=== PATIENT | female | born 1960 | race African-American/Black ===

== ENCOUNTER 2016-10-14 17:41 | Emergency (ER) | payer OTHER ==
[~2016-10-14] VITALS: Ht 175.3 cm; Wt 88.0 kg
[~2016-10-14 17:41] MED LIST: 1-ME1LIQ OR; LEVO25TA36 PO; METO100T PO; MOBI7.5T PO; Muscle Relaxer; OMEP20TA OR; SIMV20TA OR
[2016-10-14 17:43] VITALS: BP 127/68; PULSE 69; RESP 15; TEMP 98.1; O2SAT 99
--- NOTE | 2016-10-14 17:57 | PD ---
Physical Exam Date Seen by Provider: Oct 14, 2016 Time Seen by Provider: 17:51 Narrative 55 Y/O female presents with complaints of right upper abdominal pain for the past 2 months, which is reportedly worse with food and if she sits too long. Patient recently diagnosed with shingles 6 days ago in same area, but pain was present before. No vomiting or diarrhea. Denies fever. No History Abdominal Surgery. Patient on Valtrex for shingles. V/S stable. Awaiting Bed Placement. Data Data Last Documented VS Vital Signs Date Time Temp Pulse Resp B/P Pulse Ox O2 Delivery O2 Flow Rate FiO2 10/14/16 17:43 98.1 69 15 127/68 99 MDM Medical Record Reviewed: Yes Supervised Visit with SUDHA: Yes Condition: Stable Carlos Cao Oct 14, 2016 17:57
[2016-10-14] MEDS ORDERED: SODIUM CHLORIDE 0.9% FLUSH 10 ML FLUSH IV FLUSH PRN (18:15)
[2016-10-14 18:24] VITALS: RESP 18; O2SAT 95
[2016-10-14] MEDS ORDERED: PERC5TAB12 PO (18:43)
[2016-10-14] MEDS ORDERED: SIMV20TA PO (18:43)
[2016-10-14] MEDS ORDERED: MOBI7.5T PO (18:43)
[2016-10-14] MEDS ORDERED: OMEP20TA PO (18:43)
[2016-10-14] MEDS ORDERED: AMLO10TA2 PO (18:43)
[2016-10-14] MEDS ORDERED: LEVO50TA4 PO (18:43)
[2016-10-14] MEDS ORDERED: ASPI1TAB91 PO (18:43)
[2016-10-14] MEDS ORDERED: LIDO5%T TOPICAL (18:43)
[2016-10-14] MEDS ORDERED: METO100T PO (18:43)
[2016-10-14] MEDS ORDERED: VALA1TAB PO (18:43)
[2016-10-14 19:10] LABS: AUTOMATED NEUTROPHIL # 3.2 TH/MM3 (1.8-7.7); BASOPHIL # 0.1 TH/MM3 (0-0.2); BASOPHIL % 0.8 % (0.0-2.0); EOSINOPHIL # 0.1 TH/MM3 (0-0.4); EOSINOPHIL % 1.3 % (0.0-4.0); HEMATOCRIT 37.9 % (35.0-46.0); HEMO FLAGS DIFF FINAL; LYMPH % 37.3 % (9.0-44.0); LYMPHOCYTE # 2.4 TH/MM3 (1.0-4.8); MEAN CORPUSCULAR HEMOGLOBIN 31.4 PG (27.0-34.0); MEAN CORPUSCULAR HGB CONC 34.5 % (32.0-36.0); MONO % 10.3 % (0.0-8.0); NEUT % 50.3 % (16.0-70.0); PLATELET COUNT 230 TH/MM3 (150-450); RED BLOOD COUNT 4.17 MIL/MM3 (4.00-5.30); RED CELL DISTRIBUTION WIDTH 13.4 % (11.6-17.2); WHITE BLOOD COUNT 6.4 TH/MM3 (4.0-11.0)
[2016-10-14 19:33] LABS: ANION GAP 8 MEQ/L (5-15); AST (GOT) 23 U/L (15-37); BLOOD UREA NITROGEN 14 MG/DL (7-18); CHLORIDE 104 MEQ/L (98-107); GLOMERULAR FILTRATION RATE 61 ML/MIN (>89); POTASSIUM 3.6 MEQ/L (3.5-5.1); SODIUM (NA) 140 MEQ/L (136-145)
--- NOTE | 2016-10-14 19:34 | RADRPT ---
EXAM DATE/TIME: 10/14/2016 18:45 [facility] COMPARISON: No previous studies available for comparison. INDICATIONS : Right upper quadrant pain. MEDICAL HISTORY : Hypercholesterolemia. Hypertension. Thyroid disease. GERD. Ovarian cysts. Ectopic . SURGICAL HISTORY : Tubal PG. Left wrist CTR. Left ovary and fallopian tube. ENCOUNTER: Initial ACUITY: 2 months PAIN SCORE: 7/10 LOCATION: Right upper quadrant MEASUREMENTS: LIVER: 17.9 cm length COMMON DUCT: 2 mm RIGHT KIDNEY: 9.5 x 5.2 x 4.7 cm FINDINGS: The gallbladder is intact without any evidence for gallstones, gallbladder wall thickening, or perich olecystic fluid. The visualized liver, head of the pancreas, and right kidney appear grossly intact for technique. CONCLUSION: Unremarkable study. Lenore Gauthier MD on October 14, 2016 at 19:32 Board Certified Radiologist. This report was verified electronically.
[2016-10-14 19:39] LABS: ALKALINE PHOSPHATASE 78 U/L (45-117); ALT (GPT) 23 U/L (10-53); TOTAL BILIRUBIN ADULT 0.2 MG/DL (0.2-1.0)
[2016-10-14 19:50] VITALS: BP 150/79; PULSE 75; RESP 15; O2SAT 100
--- NOTE | 2016-10-14 20:09 | PD ---
HPI Chief Complaint: Abdominal Pain Time Seen by Provider: 17:59 Travel History International Travel<30 days: No Contact w/Intl Traveler<30days: No Traveled to known affect area: No PFSH Past Medical History High Cholesterol: Yes Diabetes: No Diminished Hearing: No GERD: Yes Headaches: Yes Hypertension: Yes Kidney Stones: No Shingles: Yes Thyroid Disease: Yes ?: Not Menopausal: Yes : 1 Para: 1 Miscarriage: 1 Ectopic : Yes Ovarian Cysts: Yes Past Surgical History Gynecologic Surgery: Yes (TUBAL PG) Other Surgery: Yes (LEFT OVARY AND LEFT F. TUBE) Social History Alcohol Use: No Tobacco Use: Yes (1 ppd) Substance Use: No Allergies-Medications (Allergen,Severity, Reaction): Coded Allergies: Lisinopril (Verified Allergy, Severe, Cough, 10/14/16) Reported Meds & Prescriptions Reported Meds & Active Scripts Active Reported Omeprazole 20 Mg Tab 20 Mg PO DAILY Metoprolol Tartrate 100 Mg Tab 100 Mg PO BID Mobic (Meloxicam) 7.5 Mg Tab 7.5 Mg PO BID Levothyroxine (Levothyroxine Sodium) 50 Mcg Tab 50 Mcg PO DAILY Simvastatin 20 Mg Tab 20 Mg PO HS Amlodipine (Amlodipine Besylate) 10 Mg Tab 10 Mg PO DAILY Valacyclovir (Valacyclovir HCl) 1 Gm Tab 1 Gm PO TID Percocet (Oxycodone-Acetaminophen) 5-325 mg Tab 1 Tab PO EVERY 6-8HRS PRN Lidocaine Topical (Lidocaine HCl) 5 % Oint 1 Applic TOPICAL TID PRN Apply to stomach lesions Aspirin Adult Low Strength (Aspirin) 81 Mg Tabdr 81 Mg PO DAILY Data Data Last Documented VS Vital Signs Date Time Temp Pulse Resp B/P Pulse Ox O2 Delivery O2 Flow Rate FiO2 10/14/16 19:51 15 10/14/16 19:50 75 150/79 100 10/14/16 18:24 Room Air 10/14/16 17:43 98.1 Orders Complete Blood Count With Diff (10/14/16 18:07) Comprehensive Metabolic Panel (10/14/16 18:07) Lipase (10/14/16 18:07) Iv Access Insert/Monitor (10/14/16 18:07) Ecg Monitoring (10/14/16 18:07) Oximetry (10/14/16 18:07) Sodium Chloride 0.9% Flush (Ns Flush) (10/14/16 18:15) Us Abdomen Gallbladder (10/14/16 18:07) Tramadol (Ultram) (10/14/16 20:15) Labs Laboratory Tests Test 10/14/16 18:20 White Blood Count 6.4 TH/MM3 Red Blood Count 4.17 MIL/MM3 Hemoglobin 13.1 GM/DL Hematocrit 37.9 % Mean Corpuscular Volume 91.0 FL Mean Corpuscular Hemoglobin 31.4 PG Mean Corpuscular Hemoglobin 34.5 % Concent Red Cell Distribution Width 13.4 % Platelet Count 230 TH/MM3 Mean Platelet Volume 8.6 FL Neutrophils (%) (Auto) 50.3 % Lymphocytes (%) (Auto) 37.3 % Monocytes (%) (Auto) 10.3 % Eosinophils (%) (Auto) 1.3 % Basophils (%) (Auto) 0.8 % Neutrophils # (Auto) 3.2 TH/MM3 Lymphocytes # (Auto) 2.4 TH/MM3 Monocytes # (Auto) 0.7 TH/MM3 Eosinophils # (Auto) 0.1 TH/MM3 Basophils # (Auto) 0.1 TH/MM3 CBC Comment DIFF FINAL Differential Comment Sodium Level 140 MEQ/L Potassium Level 3.6 MEQ/L Chloride Level 104 MEQ/L Carbon Dioxide Level 28.0 MEQ/L Anion Gap 8 MEQ/L Blood Urea Nitrogen 14 MG/DL Creatinine 1.12 MG/DL Estimat Glomerular Filtration 61 ML/MIN Rate Random Glucose 84 MG/DL Calcium Level 8.7 MG/DL Total Bilirubin 0.2 MG/DL Aspartate Amino Transf 23 U/L (AST/SGOT) Alanine Aminotransferase 23 U/L (ALT/SGPT) Alkaline Phosphatase 78 U/L Total Protein 7.8 GM/DL Albumin 3.6 GM/DL Lipase 169 U/L [facility] Medical Decision Making Medical Screen Exam Complete: Yes Emergency Medical Condition: Yes Diagnosis Primary Impression: RUQ abdominal pain Condition: Stable Dwayne Neal MD Oct 14, 2016 20:09
[2016-10-14] MEDS ORDERED: traMADol HCL 50 MG TAB PO ONE (20:15)
--- NOTE | 2016-10-15 13:31 | PD ---
HPI Chief Complaint: Abdominal Pain Time Seen by Provider: 17:59 Travel History International Travel<30 days: No Contact w/Intl Traveler<30days: No Traveled to known affect area: No History of Present Illness HPI Patient is a 55 year old female presents to the emergency department for evaluation of ruq abdominal pain. Patient recently diagnosed with shingles of the right sided of the abdomen. Patient states she has been taking antivirals for this. States that the RUQ pain preceeded the rash by a month and feels deeper inside. No NVDC. Patient states gets worse with food. States pain is fairly mild now. Was offered pain medication on arrival but declined. PFSH Past Medical History High Cholesterol: Yes Diabetes: No Diminished Hearing: No GERD: Yes Headaches: Yes Hypertension: Yes Kidney Stones: No Shingles: Yes Thyroid Disease: Yes ?: Not Menopausal: Yes : 1 Para: 1 Miscarriage: 1 Ectopic : Yes Ovarian Cysts: Yes Past Surgical History Gynecologic Surgery: Yes (TUBAL PG) Other Surgery: Yes (LEFT OVARY AND LEFT F. TUBE) Social History Alcohol Use: No Tobacco Use: Yes (1 ppd) Substance Use: No Allergies-Medications (Allergen,Severity, Reaction): Coded Allergies: Lisinopril (Verified Allergy, Severe, Cough, 10/14/16) Reported Meds & Prescriptions Reported Meds & Active Scripts Active Reported Omeprazole 20 Mg Tab 20 Mg PO DAILY Metoprolol Tartrate 100 Mg Tab 100 Mg PO BID Mobic (Meloxicam) 7.5 Mg Tab 7.5 Mg PO BID Levothyroxine (Levothyroxine Sodium) 50 Mcg Tab 50 Mcg PO DAILY Simvastatin 20 Mg Tab 20 Mg PO HS Amlodipine (Amlodipine Besylate) 10 Mg Tab 10 Mg PO DAILY Valacyclovir (Valacyclovir HCl) 1 Gm Tab 1 Gm PO TID Percocet (Oxycodone-Acetaminophen) 5-325 mg Tab 1 Tab PO EVERY 6-8HRS PRN Lidocaine Topical (Lidocaine HCl) 5 % Oint 1 Applic TOPICAL TID PRN Apply to stomach lesions Aspirin Adult Low Strength (Aspirin) 81 Mg Tabdr 81 Mg PO DAILY Review of Systems Except as stated in HPI: all other systems reviewed are Neg Physical Exam Narrative GENERAL: WD/WN in nad. Appears well and in no pain. Quite pleasant. SKIN: Warm and dry. HEAD: Atraumatic. Normocephalic. EYES: Pupils equal and round. No scleral icterus. No injection or drainage. ENT: No nasal bleeding or discharge. Mucous membranes pink and moist. NECK: Trachea midline. No JVD. CARDIOVASCULAR: Regular rate and rhythm. RESPIRATORY: No accessory muscle use. Clear to auscultation. Breath sounds equal bilaterally. GASTROINTESTINAL: Abdomen soft, non-tender, nondistended. Hepatic and splenic margins not palpable. There is a scabbed rash to the right upper quadrant wrapping around the abdomen to the back and not crossing midline. Rash is scabbed. No erythema. C/W resolving shingles. MUSCULOSKELETAL: Extremities without clubbing, cyanosis, or edema. No obvious deformities. NEUROLOGICAL: Awake and alert. No obvious cranial nerve deficits. Motor grossly within normal limits. Five out of 5 muscle strength in the arms and legs. Normal speech. PSYCHIATRIC: Appropriate mood and affect; insight and judgment normal. Data Data Last Documented VS Vital Signs Date Time Temp Pulse Resp B/P Pulse Ox O2 Delivery O2 Flow Rate FiO2 10/14/16 19:51 15 10/14/16 19:50 75 150/79 100 10/14/16 18:24 Room Air 10/14/16 17:43 98.1 Orders Complete Blood Count With Diff (10/14/16 18:07) Comprehensive Metabolic Panel (10/14/16 18:07) Lipase (10/14/16 18:07) Iv Access Insert/Monitor (10/14/16 18:07) Ecg Monitoring (10/14/16 18:07) Oximetry (10/14/16 18:07) Sodium Chloride 0.9% Flush (Ns Flush) (10/14/16 18:15) Us Abdomen Gallbladder (10/14/16 18:07) Tramadol (Ultram) (10/14/16 20:15) Labs Laboratory Tests Test 10/14/16 18:20 White Blood Count 6.4 TH/MM3 Red Blood Count 4.17 MIL/MM3 Hemoglobin 13.1 GM/DL Hematocrit 37.9 % Mean Corpuscular Volume 91.0 FL Mean Corpuscular Hemoglobin 31.4 PG Mean Corpuscular Hemoglobin 34.5 % Concent Red Cell Distribution Width 13.4 % Platelet Count 230 TH/MM3 Mean Platelet Volume 8.6 FL Neutrophils (%) (Auto) 50.3 % Lymphocytes (%) (Auto) 37.3 % Monocytes (%) (Auto) 10.3 % Eosinophils (%) (Auto) 1.3 % Basophils (%) (Auto) 0.8 % Neutrophils # (Auto) 3.2 TH/MM3 Lymphocytes # (Auto) 2.4 TH/MM3 Monocytes # (Auto) 0.7 TH/MM3 Eosinophils # (Auto) 0.1 TH/MM3 Basophils # (Auto) 0.1 TH/MM3 CBC Comment DIFF FINAL Differential Comment Sodium Level 140 MEQ/L Potassium Level 3.6 MEQ/L Chloride Level 104 MEQ/L Carbon Dioxide Level 28.0 MEQ/L Anion Gap 8 MEQ/L Blood Urea Nitrogen 14 MG/DL Creatinine 1.12 MG/DL Estimat Glomerular Filtration 61 ML/MIN Rate Random Glucose 84 MG/DL Calcium Level 8.7 MG/DL Total Bilirubin 0.2 MG/DL Aspartate Amino Transf 23 U/L (AST/SGOT) Alanine Aminotransferase 23 U/L (ALT/SGPT) Alkaline Phosphatase 78 U/L Total Protein 7.8 GM/DL Albumin 3.6 GM/DL Lipase 169 U/L [facility] Medical Decision Making Medical Screen Exam Complete: Yes Emergency Medical Condition: Yes Differential Diagnosis RUQ pain, pancreatitis, biliary colic, cholecystitis, shingles prodrome/ outbreak. Narrative Course Patient roomed in ER. Offered pain medication and initially declined. Abdomen is benign. Healing shingles rash noted. Likely non-contagious at this point. GB US obtained: Last 24 hours Impressions Gall Bladder Ultrasound 10/14/16 [id number] Signed Impressions: Service Date/Time: Friday, October 14, 2016 18:45 - CONCLUSION: Unremarkable study. KMylene Gauthier MD Abdominal labs are reassuring. She ultimately was offered and accepted ultram. her is going to take her home. She is stable for discharge. Discussed need for follow up with her pcp for further workup. She will do this later this week. Discussed return to ED criteria. Diagnosis Primary Impression: RUQ abdominal pain Patient Instructions: General Instructions, Abdominal Pain (ED) Departure Forms: Tests/Procedures Disposition: 01 DISCHARGE HOME Condition: Stable Dwayne Neal MD October 15, 2016 13:31
== END 2016-10-14 21:07 | disposition home or self-care (01) ==
LOC: NEPD 17:41
DX: R10.11 Right upper quadrant pain (principal); R21 Rash and other nonspecific skin eruption; I10 Essential (primary) hypertension; F17.210 Nicotine dependence, cigarettes, uncomplicated
CPT/HCPCS: 76705; 80053; 83690; 85025

== ENCOUNTER 2017-08-17 12:49 | Emergency (ER) | payer OTHER ==
[~2017-08-17] VITALS: Ht 175.3 cm; Wt 90.0 kg
[~2017-08-17 12:49] MED LIST changes: -1-ME1LIQ OR; +AMLO10TA2 PO; +ASPI81TA16 PO; -LEVO25TA36 PO; +LEVO50TA4 PO; +LIDO5%T TOPICAL; -Muscle Relaxer; -OMEP20TA OR; +OMEP20TA93 PO; +PERC5TAB12 PO; -SIMV20TA OR; +SIMV20TA PO; +VALA1TAB PO
[2017-08-17] MEDS ORDERED: IOHEXOL 350 MG/ML 10 ML VIAL (for RAD DIAG) IVCONTRAST ONE (12:50)
[2017-08-17 13:13] VITALS: BP 132/69; PULSE 67; RESP 16; TEMP 98.5; O2SAT 98
--- NOTE | 2017-08-17 14:19 | PD ---
HPI Chief Complaint: Bleeding Time Seen by Provider: 13:50 Travel History International Travel<30 days: No Contact w/Intl Traveler<30days: No Traveled to known affect area: No History of Present Illness HPI 56-year-old female presents emergency department with concerns of right upper quadrant pain, rectal bleeding, and vaginal discharge for 1-2 weeks. Patient states that she has had rectal bleeding about 2 weeks and is due to have a colonoscopy in 1-2 weeks however, they were engaged in anal intercourse and says now she has increased rectal pain and is concerned about a tear. Patient denies fever, chills, weakness, she chest pain, shortness of breath. In addition, patient states that she has had a foul odor and is itching in her vaginal area. Says she developed right upper quadrant pain 3 days after the intercourse that is worse with bowel movements and is mild to moderate nature. No radiation of pain. Says that she has had decreased quantity of stool in her bowel movements secondary to this rectal pain. Patient states he takes aspirin but no other blood thinners. Patient denies cardiac history. States she has a history of hypertension, hyperlipidemia, hypothyroid. She mentions that she went to her primary care physician where she had multiple lab tests and they were "negative for venereal diseases" except for herpes simplex. Pt says she is monogamous with her but is certain that her is not. She does not know how many partners her has had. PFSH Past Medical History Hx Anticoagulant Therapy: Yes (81MG ASA) High Cholesterol: Yes Diabetes: No Diminished Hearing: No GERD: Yes Headaches: Yes Hypertension: Yes Kidney Stones: No Shingles: Yes Thyroid Disease: Yes ?: Not Menopausal: Yes : 1 Para: 1 Miscarriage: 1 Ectopic : Yes Ovarian Cysts: Yes Past Surgical History Gynecologic Surgery: Yes (TUBAL PG) Other Surgery: Yes (LEFT OVARY AND LEFT F. TUBE) Social History Alcohol Use: No Tobacco Use: Yes Substance Use: No Allergies-Medications (Allergen,Severity, Reaction): Coded Allergies: lisinopril (Unverified Allergy, Severe, Cough, 08/17/17) Reported Meds & Prescriptions Reported Meds & Active Scripts Active Reported Omeprazole 20 Mg Tab 20 Mg PO DAILY Metoprolol Tartrate 100 Mg Tab 100 Mg PO BID Mobic (Meloxicam) 7.5 Mg Tab 7.5 Mg PO BID Levothyroxine (Levothyroxine Sodium) 50 Mcg Tab 50 Mcg PO DAILY Simvastatin 20 Mg Tab 20 Mg PO HS Amlodipine (Amlodipine Besylate) 10 Mg Tab 10 Mg PO DAILY Lidocaine Topical (Lidocaine HCl) 5 % Oint 1 Applic TOPICAL TID PRN Apply to stomach lesions Aspirin Adult Low Strength (Aspirin) 81 Mg Tabdr 81 Mg PO DAILY Review of Systems Except as stated in HPI: all other systems reviewed are Neg Physical Exam Narrative GENERAL: Well-developed, well-nourished in no apparent distress, resting comfortably but SKIN: Focused skin assessment warm/dry. HEAD: Atraumatic. Normocephalic. EYES: Pupils equal and round. No scleral icterus. No injection or drainage. ENT: No nasal bleeding or discharge. Mucous membranes pink and moist. NECK: Trachea midline. No JVD. No lymphadenopathy CARDIOVASCULAR: Regular rate and rhythm. No murmur appreciated. RESPIRATORY: No accessory muscle use. Clear to auscultation. Breath sounds equal bilaterally. GASTROINTESTINAL: Abdomen soft, right upper quadrant pain without rebound, negative Grant, : Cervical os was closed without drainage. No cervical motion tenderness. Uterus nontender and nonenlarged. right adnexa mildly TTP without mass, left adnexa nontender, no mass Rectum: possible anal fissure 12-1 oclock, scant stool in vault MUSCULOSKELETAL: No obvious deformities. No clubbing. No cyanosis. No edema. NEUROLOGICAL: Awake and alert. No obvious cranial nerve deficits. Motor grossly within normal limits. Normal speech. PSYCHIATRIC: Appropriate mood and affect; insight and judgment normal. Data Data Last Documented VS Vital Signs Date Time Temp Pulse Resp B/P (MAP) Pulse Ox O2 Delivery O2 Flow Rate FiO2 08/17/17 13:13 98.5 67 16 132/69 (90) 98 Orders Orders Complete Blood Count With Diff (08/17/17 14:05) Comprehensive Metabolic Panel (08/17/17 14:05) Gc And Chlamydia Pcr (08/17/17 14:05) Wet Prep Profile (08/17/17 14:05) Urinalysis - C+S If Indicated (08/17/17 14:05) Ed Urine Pregnancytest Poc (08/17/17 14:05) Lipase (08/17/17 14:05) Ct Abd/Pel W Iv Contrast(Rout) (08/17/17 ) Iohexol 350 Inj (Omnipaque 350 Inj) (08/17/17 12:50) Azithromycin Powd Pack (Zithromax Powd P (08/17/17 17:00) Lidocaine 1% Inj (50 Ml) (Xylocaine 1% I (08/17/17 17:00) Ceftriaxone Inj (Rocephin Inj) (08/17/17 17:00) Ed Discharge Order (08/17/17 17:03) Labs Laboratory Tests Test 08/17/17 14:41 White Blood Count 5.0 TH/MM3 Red Blood Count 4.12 MIL/MM3 Hemoglobin 13.2 GM/DL Hematocrit 37.9 % Mean Corpuscular Volume 92.0 FL Mean Corpuscular Hemoglobin 32.0 PG Mean Corpuscular Hemoglobin Concent 34.8 % Red Cell Distribution Width 14.1 % Platelet Count 239 TH/MM3 Mean Platelet Volume 7.7 FL Neutrophils (%) (Auto) 53.0 % Lymphocytes (%) (Auto) 35.8 % Monocytes (%) (Auto) 9.8 % Eosinophils (%) (Auto) 0.7 % Basophils (%) (Auto) 0.7 % Neutrophils # (Auto) 2.7 TH/MM3 Lymphocytes # (Auto) 1.8 TH/MM3 Monocytes # (Auto) 0.5 TH/MM3 Eosinophils # (Auto) 0.0 TH/MM3 Basophils # (Auto) 0.0 TH/MM3 CBC Comment DIFF FINAL Differential Comment Urine Color LIGHT-YELLOW Urine Turbidity CLEAR Urine pH 6.5 Urine Specific [place] 1.003 Urine Protein NEG mg/dL Urine Glucose (UA) NEG mg/dL Urine Ketones NEG mg/dL Urine Occult Blood TRACE Urine Nitrite NEG Urine Bilirubin NEG Urine Urobilinogen LESS THAN 2.0 MG/DL Urine Leukocyte Esterase NEG Microscopic Urinalysis Comment CULT NOT INDICATED Clue Cells (Wet Prep) NONE SEEN Vaginal Trichomonas (Wet Prep) NONE SEEN Vaginal Yeast (Wet Prep) NONE SEEN Blood Urea Nitrogen 9 MG/DL Creatinine 0.79 MG/DL Random Glucose 88 MG/DL Total Protein 7.3 GM/DL Albumin 3.6 GM/DL Calcium Level 8.7 MG/DL Alkaline Phosphatase 59 U/L Aspartate Amino Transf (AST/SGOT) 16 U/L Alanine Aminotransferase (ALT/SGPT) 18 U/L Total Bilirubin 0.4 MG/DL Sodium Level 141 MEQ/L Potassium Level 3.4 MEQ/L Chloride Level 108 MEQ/L Carbon Dioxide Level 29.6 MEQ/L Anion Gap 3 MEQ/L Estimat Glomerular Filtration Rate 91 ML/MIN Lipase 133 U/L Chlamydia trachomatis DNA (PCR) NOT DETECTED Neisseria gonorrhoeae DNA (PCR) NOT DETECTED MDM Medical Decision Making Medical Screen Exam Complete: Yes Emergency Medical Condition: Yes Differential Diagnosis ace-hug juanito, hemorrhoid, bacterial vaginosis, vaginal candidiasis, SBO Narrative Course 56-year-old female presents emergency department requesting exam of the anus and vagina after an encounter of anal and vaginal intercourse approximately 2 weeks ago. Says that she is concerned because she is having a foul odor and discharge from the vagina. She believes this is because she had anal sex with her and likely vaginal immediately after. In addition, she is concerned about rectal bleeding that she has had for approximately 2 weeks, concerned that the anal intercourse has exacerbated this. She is being evaluated by her primary care physician for this and is due to have a colonoscopy in 1-2 weeks. Patient states that she has occasional bloody stool in the toilet at this time. Since her last menstrual period was about 20 years ago. Denies history of abdominal surgeries. Labs and imaging studies ordered. Pelvic exam demonstrated probable vaginal candidiasis. No obvious discharge or odor noted. Rectal exam with likely fissure to the 12 to 1 o'clock position without bleeding. Scant stool, no blood noted. Hemoccult negative. Last Impressions Abdomen/Pelvis CT 08/17/17 0000 Signed Impressions: Service Date/Time: Thursday, August 17, 2017 16:18 - CONCLUSION: Negative, I do not see an etiology for the right lower quadrant pain There no inflammatory changes [place]orses[place] kidney. Darryn Grady MD FACR Labs are stable. Because of H&P, will treat with azithromycin and rocephin. Concerned for development of PID although not likely at this point. Pt should follow up with her PCP regarding her symptoms. Follow up with a colonoscopy as scheduled. Stool softeners and laxative for possible constipation, secondary to rectal pain. Diagnosis Primary Impression: Vaginitis Qualified Codes: N76.0 - Acute vaginitis Additional Impression: Anal fissure Referrals: Primary Care Physician Additional Instructions: If you develop fever, chills, severe abdominal pain, persistent vomiting or inability to eat return to the emergency department. Your pelvic exam today did not include a Pap smear. It is important to followup with a ext js developer on a yearly basis to be tested for cervical cancer as we do not do that from the emergency department. If there is a concern that you have sexually transmitted disease, your partner should be tested. You should followup with your ext js developer or with the health department to get tested for other sexually transmitted diseases like HIV and syphilis, as we do not test for these in the emergency department You were treated for an infection today. Disposition: 01 DISCHARGE HOME Condition: Stable Paula Vargas Aug 17, 2017 14:19
[2017-08-17 15:02] LABS: AUTOMATED NEUTROPHIL # 2.7 TH/MM3 (1.8-7.7); BASOPHIL % 0.7 % (0.0-2.0); EOSINOPHIL % 0.7 % (0.0-4.0); HEMATOCRIT 37.9 % (35.0-46.0); HEMOGLOBIN 13.2 GM/DL (11.6-15.3); LYMPH % 35.8 % (9.0-44.0); LYMPHOCYTE # 1.8 TH/MM3 (1.0-4.8); MEAN CORPUSCULAR HGB CONC 34.8 % (32.0-36.0); MEAN PLATELET VOLUME 7.7 FL (7.0-11.0); MONO % 9.8 % (0.0-8.0); MONOCYTE # 0.5 TH/MM3 (0-0.9); PLATELET COUNT 239 TH/MM3 (150-450); RED BLOOD COUNT 4.12 MIL/MM3 (4.00-5.30); RED CELL DISTRIBUTION WIDTH 14.1 % (11.6-17.2)
[2017-08-17 15:21] LABS: ALBUMIN 3.6 GM/DL (3.4-5.0); ALT (GPT) 18 U/L (10-53); AST (GOT) 16 U/L (15-37); BICARBONATE 29.6 MEQ/L (21.0-32.0); BLOOD UREA NITROGEN 9 MG/DL (7-18); CALCIUM 8.7 MG/DL (8.5-10.1); CHLORIDE 108 MEQ/L (98-107); CREATININE 0.79 MG/DL (0.50-1.00); GLOMERULAR FILTRATION RATE 91 ML/MIN (>89); GLUCOSE,RANDOM 88 MG/DL (74-106); SODIUM (NA) 141 MEQ/L (136-145)
[2017-08-17 15:23] LABS: ALKALINE PHOSPHATASE 59 U/L (45-117); TOTAL BILIRUBIN ADULT 0.4 MG/DL (0.2-1.0); TOTAL PROTEIN 7.3 GM/DL (6.4-8.2)
[2017-08-17 15:32] LABS: BILIRUBIN, URINE NEG (NEG); BLOOD, URINE TRACE (NEG); GLUCOSE,URINE NEG (NEG); KETONE, URINE NEG (NEG); NITRITE,URINE NEG (NEG); PH, URINE 6.5 (5.0-8.5); URINE COLOR LIGHT-YELLOW (YELLW/STRAW); URINE LEUKOCYTE ESTERASE NEG (NEG)
--- NOTE | 2017-08-17 16:41 | RADRPT ---
EXAM DATE/TIME: 08/17/2017 16:18 [facility] COMPARISON: No previous studies available for comparison. INDICATIONS : Patient complains of right lower quadrant pain. IV CONTRAST: 97 cc Omnipaque 350 (iohexol) IV ORAL CONTRAST: No oral contrast ingested. RADIATION DOSE: 8.43 CTDIvol (mGy) MEDICAL HISTORY : Hypertension. reflux SURGICAL HISTORY : left ovary removed ENCOUNTER: Initial ACUITY: 3 weeks PAIN SCALE: 5/10 LOCATION: Right lower quadrant TECHNIQUE: Volumetric scanning of the abdomen and pelvis was performed. Using automated exposure control and ad justment of the mA and/or kV according to patient size, radiation dose was kept as low as reasonably achievable to obtain optimal diagnostic quality images. DICOM format image data is available electro nically for review and comparison. FINDINGS: Visualized lungs are clear. The liver and gallbladder are unremarkable The spleen and pancreas appear normal Right and left adrenal glands are unremarkable Pelvic kidney with function across the midline There is no stone or obstruction Pelvic contents are unremarkable. There are inflammatory changes evident. Uterus and adnexa are unr emarkable. Review of bone windows reveals only mild degenerative changes in the lumbar spine. CONCLUSION: Negative, I do not see an etiology for the right lower quadrant pain There no inflammatory changes Horseshoe kidney. Darryn Grady MD FACR on August 17, 2017 at 16:39 Board Certified Radiologist. This report was verified electronically.
[2017-08-17] MEDS ORDERED: LIDOCAINE HCL 1% 50 ML VIAL IM ONE (17:00)
[2017-08-17] MEDS ORDERED: cefTRIAXone 250 MG VIAL IM ONE (17:00)
[2017-08-17] MEDS ORDERED: AZITHROMYCIN PWD FOR SUSP 1 GM PACKET PO ONE (17:00)
== END 2017-08-17 17:44 | disposition home or self-care (01) ==
LOC: NEPC 12:49
DX: N76.0 Acute vaginitis (principal); K60.2 Anal fissure, unspecified; Q63.1 Lobulated, fused and horseshoe kidney; I10 Essential (primary) hypertension; E78.5 Hyperlipidemia, unspecified; E03.9 Hypothyroidism, unspecified; K21.9 Gastro-esophageal reflux disease without esophagitis; E07.9 Disorder of thyroid, unspecified; Z72.0 Tobacco use
CPT/HCPCS: 74177; 80053; 81001; 83690; 84703; 85025; 87210; 87491; 87591; 96372; 99284; J0696; Q9967

== ENCOUNTER 2018-04-11 10:20 | Observation (INO) ==
--- NOTE | 2018-04-11 11:45 | ED ---
HPI General Chief complaint: Arrhythmia / Palpitations Stated complaint: Medical Time Seen by Provider: 04/11/18 10:46 Source: patient and family Mode of arrival: ambulatory Limitations: no limitations History of Present Illness HPI narrative: Patient is a 57-year-old female presenting to the emergency department for evaluation of hypertension. Patient states that she is out of her blood pressure medicine for the last 3 weeks. She lost her primary doctor when she lost her insurance benefits. She reports that for the last 2 days she has had midsternal chest pain intermittently. She reports that she took Tylenol and Goody's Powder and laid down until she felt better yesterday. She is currently pain-free. She reports the pain is a 4 out of 10, pressure-like and sore. 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 Patient states that when her blood pressure gets high she begins to feel shaky, she had a headache and she felt like her vision was blurry. She does not have any of those symptoms currently. Patient is a current daily tobacco user. She reduced her intake from 2 packs a day to 1 pack a day. She denies any other significant past medical history other than hypertension. She further denies any nausea, vomiting, diaphoresis, abdominal pain. Onset (ago): day(s) Location: chest Severity: mild and moderate Quality: other (pressure) Pain Consistency: intermittent and now resolved Relieving factors: rest Associated symptoms: Reports denies other symptoms Treatments prior to arrival: Reports none Related Data Home Medications Medication Instructions Recorded Confirmed amlodipine 10 mg PO DAILY 04/11/18 04/11/18 levothyroxine 50 mcg PO DAILY 04/11/18 04/11/18 meloxicam 7.5 mg PO DAILY 04/11/18 04/11/18 metoprolol tartrate 100 mg PO BID 04/11/18 04/11/18 omeprazole 20 mg PO DAILY 04/11/18 04/11/18 simvastatin 20 mg PO QPM 04/11/18 04/11/18 Allergies Allergy/AdvReac Type Severity Reaction Status Date / Time lisinopril Allergy Severe Cough Unverified 04/11/18 11:54 Review of Systems ROS: all other systems reviewed are negative PMFSH History History Provided By: Patient and Family Member Medical History Medical History Hypertension (Chronic) Tobacco abuse disorder (Chronic) Social History Social History Substance History: No History of Abuse Second Hand Smoke Exposure: Yes Smoking Status: Current every day smoker Tobacco Type: Cigarettes How Often Do You Have a Drink Containing Alcohol: Never Recent Travel in [facility] within the Last 8 Weeks: No Recent Out of Country Travel within the Last 8 Weeks: No Exam Narrative Exam Narrative: GENERAL: Well-developed, well-nourished, alert -[place] female. Presenting in no acute distress. SKIN: Focused skin assessment warm/dry. HEAD: Atraumatic. Normocephalic. EYES: Pupils equal and round. No scleral icterus. No injection or drainage. ENT: No nasal bleeding or discharge. Mucous membranes pink and moist. NECK: Trachea midline. No JVD. CARDIOVASCULAR: Regular rate and rhythm. No murmur appreciated. RESPIRATORY: No accessory muscle use. Clear to auscultation. Breath sounds equal bilaterally. GASTROINTESTINAL: Abdomen soft, non-tender, nondistended. Hepatic and splenic margins not palpable. MUSCULOSKELETAL: No obvious deformities. No clubbing. No cyanosis. No edema. NEUROLOGICAL: Awake and alert. No obvious cranial nerve deficits. Motor grossly within normal limits. Normal speech. PSYCHIATRIC: Appropriate mood and affect; insight and judgment normal. Course Initial Documented Vital Signs Temperature 98.3 F 04/11/18 10:22 Pulse Rate 79 04/11/18 10:22 Respiratory Rate 16 04/11/18 10:22 Blood Pressure 158/82 H 04/11/18 10:22 Pulse Oximetry 96 04/11/18 10:22 Last Documented Vital Signs Temperature 97.5 F L 04/11/18 15:52 Pulse Rate 71 04/11/18 15:52 Respiratory Rate 20 04/11/18 15:52 Blood Pressure 155/84 H 04/11/18 15:52 Pulse Oximetry 89 L 04/11/18 15:52 Medical Decision Making SUDHA Attestation SUDHA supervised visit: Yes Attestation: I, Dr. Kim, have reviewed the advance practice practitioner's documentation and am in agreement, met with the patient face to face, made the diagnosis, and the medical decision making was done by me. *My assessment and Findings: uncontrolled HTN vs. ACS vs. anxiety 57yo F with HTN noncompliant with medication here with multiple complaints. Of note, she has been having chest pain intermittently, last episode last night. Midsternal. Had some sweating. Said she is a cig smoker, has HLD and family history of cardiac disease. 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 Had stress than over 1.5 years ago. Labs reviewed, no leukocytosis. H/H normal. Troponin negative. CMP unremarkable. Lipase normal. CXR negative. Pt given aspirin. Even though chest pain is atypical, she has no way to follow up and has multiple cardiac risk factors. Will do serial EKG and cardiac enzymes in chest pain center. MDM Narrative Medical decision making narrative: She presented for evaluation of hypertension. She reported chest pain for the last 2 days. Patient has multiple risk factors, at this time chest pain workup was initiated. Patient was given 324 of aspirin. She is currently pain-free. Patient's vital signs are stable. Medical records reviewed. Initial EKG here today shows sinus rhythm with first-degree AV block. EKG from 2011 shows the AV block was present at that time. Labs reviewed, no acute findings identified. Cardiac enzymes are negative x1 set. Chest x-ray shows no acute disease. At this time patient will be admitted to the chest pain center. She has no outpatient follow -up established at this time. She has multiple risk factors. Patient is agreeable to stay. Admit orders placed. Medical Screen Exam Complete: Yes Emergency Medical Condition: Yes Differential Diagnosis Differential Diagnosis: ACS versus [place] versus metabolic abnormality versus hypertensive urgency versus other Medical Records Medical records reviewed: Yes I reviewed the patient's medical records. Lab Data Lab results reviewed: Yes I reviewed the patient's lab results. Result diagrams: 04/11/18 11:25 04/11/18 11:25 Lab Results 04/11/18 04/11/18 04/11/18 Range/Units 11:25 11:25 11:25 WBC 5.0 (4.0-11.0) th/mm3 RBC 4.40 (4.00-5.30) mil/mm3 Hgb 13.8 (11.6-15.3) gm/dL Hct 41.6 (35.0-46.0) % MCV 94.5 (80.0-100.0) fL MCH 31.5 (27.0-34.0) pg MCHC 33.3 (32.0-36.0) % RDW 13.8 (11.6-17.2) % Plt Count 247 (150-450) th/mm3 MPV 8.0 (7.0-11.0) fL Neut % (Auto) 67.3 (16.0-70.0) % Lymph % (Auto) 25.6 (9.0-44.0) % Glades % (Auto) 6.3 (0.0-8.0) % Eos % (Auto) 0.3 (0.0-4.0) % Baso % (Auto) 0.5 (0.0-2.0) % Neut # (Auto) 3.4 (1.8-7.7) th/mm3 Lymph # (Auto) 1.3 (1.0-4.8) th/mm3 Glades # (Auto) 0.3 (0.0-0.9) th/mm3 Eos # (Auto) 0.0 (0.0-0.4) th/mm3 Baso # (Auto) 0.0 (0.0-0.2) th/mm3 WBC Differential . Differential Comment Auto diff final PT 10.5 (9.8-11.6) sec INR 1.0 Ratio APTT 30.0 (24.3-30.1) sec Sodium 141 (136-145) meq/L Potassium 3.8 (3.5-5.1) meq/L Chloride 108 H (98-107) meq/L Carbon Dioxide 26.7 (21.0-32.0) meq/L Anion Gap 6 (5-15) meq/L BUN 10 (7-18) mg/dL Creatinine 0.73 (0.50-1.00) mg/dL Estimated GFR Greater than 89 (>89) mL/min Random Glucose 86 (74-106) mg/dL Calcium 9.0 (8.5-10.1) mg/dL Magnesium (1.5-2.5) mg/dL Total Bilirubin 0.2 (0.2-1.0) mg/dL AST 17 (15-37) U/L ALT 18 (10-53) U/L Alkaline Phosphatase 70 (45-117) U/L Total Creatine Kinase 150 (26-192) U/L CK-MB (CK-2) 1.4 (0.5-3.6) ng/mL Troponin I Less than 0.02 L (0.02-0.05) ng/mL Total Protein 7.4 (6.4-8.2) g/dL Albumin 3.4 (3.4-5.0) g/dL Lipase 120 (73-393) U/L 04/11/18 04/11/18 Range/Units 11:25 15:20 WBC (4.0-11.0) th/mm3 RBC (4.00-5.30) mil/mm3 Hgb (11.6-15.3) gm/dL Hct (35.0-46.0) % MCV (80.0-100.0) fL MCH (27.0-34.0) pg MCHC (32.0-36.0) % RDW (11.6-17.2) % Plt Count (150-450) th/mm3 MPV (7.0-11.0) fL Neut % (Auto) (16.0-70.0) % Lymph % (Auto) (9.0-44.0) % Glades % (Auto) (0.0-8.0) % Eos % (Auto) (0.0-4.0) % Baso % (Auto) (0.0-2.0) % Neut # (Auto) (1.8-7.7) th/mm3 Lymph # (Auto) (1.0-4.8) th/mm3 Glades # (Auto) (0.0-0.9) th/mm3 Eos # (Auto) (0.0-0.4) th/mm3 Baso # (Auto) (0.0-0.2) th/mm3 WBC Differential Differential Comment PT (9.8-11.6) sec INR Ratio APTT (24.3-30.1) sec Sodium (136-145) meq/L Potassium (3.5-5.1) meq/L Chloride (98-107) meq/L Carbon Dioxide (21.0-32.0) meq/L Anion Gap (5-15) meq/L BUN (7-18) mg/dL Creatinine (0.50-1.00) mg/dL Estimated GFR (>89) mL/min Random Glucose (74-106) mg/dL Calcium (8.5-10.1) mg/dL Magnesium 2.1 (1.5-2.5) mg/dL Total Bilirubin (0.2-1.0) mg/dL AST (15-37) U/L ALT (10-53) U/L Alkaline Phosphatase (45-117) U/L Total Creatine Kinase 127 (26-192) U/L CK-MB (CK-2) (0.5-3.6) ng/mL Troponin I Less than 0.02 L (0.02-0.05) ng/mL Total Protein (6.4-8.2) g/dL Albumin (3.4-5.0) g/dL Lipase (73-393) U/L Imaging Data Radiologist's impression: Chest X-Ray 04/11/18 11:02 CONCLUSION: Negative examination. ECG Data EKG Prior to Arrival: No Attestation: I personally reviewed and interpreted this ECG as follows: Interpretation: NSR 69bpm. LAD. 1st AV block. MT interval 217ms. No significant ST elevation or depression. Discharge Plan Discharge Disposition Patient Disposition: 30 Still Patient Discharge Condition Condition: Stable Discharge Details Diagnosis: Chest pain Physicians Team ED Provider: Candice Kim ED Midlevel Provider: Stefanie Colbert Primary Care Provider: Primary Care Khushboo Lopez Attending Provider: Israel Urias Status ED Status: Left Department Discharge Information Discharge Date/Time: 04/11/18 14:37
[2018-04-11 11:48] LABS: Baso % (Auto) 0.5 % (0.0-2.0); Eos % (Auto) 0.3 % (0.0-4.0); Hematocrit 41.6 % (35.0-46.0); Hemoglobin 13.8 gm/dL (11.6-15.3); Lymph # (Auto) 1.3 th/mm3 (1.0-4.8); Lymph % (Auto) 25.6 % (9.0-44.0); Mean Corpuscular HGB Conc 33.3 % (32.0-36.0); Mean Corpuscular Hemoglobin 31.5 pg (27.0-34.0); Mean Corpuscular Volume 94.5 fL (80.0-100.0); Mono # (Auto) 0.3 th/mm3 (0.0-0.9); Mono % (Auto) 6.3 % (0.0-8.0); Neut # (Auto) 3.4 th/mm3 (1.8-7.7); Neut % (Auto) 67.3 % (16.0-70.0); Platelet Count 247 th/mm3 (150-450); Red Cell Distribution Width 13.8 % (11.6-17.2)
[2018-04-11 11:57] LABS: Prothrombin Time 10.5 sec (9.8-11.6)
[2018-04-11 12:05] LABS: Alanine Aminotransferase 18 U/L (10-53); Albumin 3.4 g/dL (3.4-5.0); Anion Gap 6 meq/L (5-15); Aspartate Aminotransferase 17 U/L (15-37); Blood Urea Nitrogen 10 mg/dL (7-18); Carbon Dioxide 26.7 meq/L (21.0-32.0); Chloride 108 meq/L (98-107); Glomerular Filtration Rate Greater Than 89 mL/min (>89); Glucose,Random 86 mg/dL (74-106); Lipase 120 U/L (73-393); Potassium 3.8 meq/L (3.5-5.1); Sodium 141 meq/L (136-145)
[2018-04-11 12:09] LABS: Alkaline Phosphatase 70 U/L (45-117); Creatine Kinase 150 U/L (26-192); Total Protein 7.4 g/dL (6.4-8.2)
--- NOTE | 2018-04-11 12:19 | XR ---
EXAM DATE: 04/11/2018 12:16 PM EDT AGE/SEX: 57 years / Female INDICATIONS: Chest pain. CLINICAL DATA: This is the patient's initial encounter. Patient reports that signs and symptoms have been present for 1 day and indicates a pain score of 7/10. MEDICAL/SURGICAL HISTORY: None. None. COMPARISON: [facility], CHEST PA & LAT, 10/20/2011. . FINDINGS: A single AP view of the chest demonstrates the lungs to be symmetrically aerated without evidence of mass, infiltrate or effusion. The cardiomediastinal contours are unremarkable. Osseous structures a re intact. CONCLUSION: Negative examination. Electronically signed by: Yfn Blakely MD 04/11/2018 12:17 PM EDT
[2018-04-11 12:21] LABS: Creatine Kinase MB 1.4 ng/mL (0.5-3.6)
--- NOTE | 2018-04-11 14:36 | P.HPCA ---
History of Present Illness Primary Care Physician: No Primary Care Physician Chief Complaint: Chest pain History of Present Illness: This is a 57-year-old female that presents to ED via private vehicle with her with complaint of 3 days of intermittent left-sided chest discomfort. She describes the pain as "a lot of pain." Was otherwise unable to describe it. The symptoms seem to last 2-3 minutes and has recurred 3-5 times a day over the last 3 days. Found nothing in particular to bring on the discomfort other than when she gets her self upset. States she things at work have been bothering her. 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 Currently denies discomfort. Denied associated shortness breath, nausea, diaphoresis. States she also has been out of her medications for a few weeks. She had lost her insurance and it will take about another month before she restarts insurance. States she had a normal chemical stress test about 1 year to 1 1/2 years ago at [facility]. 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 History of hypertension, hyperlipidemia, hypothyroidism, tobacco abuse. Denies diabetes and known CAD. Her brother had an WI in his 50s. Continues to smoke cigarettes at about 1 pack of cigarettes daily over the last 6 months but was smoking anywhere from 1/2-2 packs a day for 40 years. Denies alcohol or illicit drug use. She is . - Diagnosis (1) Chest pain (2) Hypertension (3) Hyperlipidemia (4) Tobacco abuse Review of Systems General: Patient denies fevers, chills, and recent travel. HEENT: Patient denies headache, sore throat, difficulty swallowing. Cardiovascular: Has the chest discomfort as mentioned above. Denies sensation of heart beating rapidly or irregularly. No syncope. Denies diaphoresis. Respiratory: Denies shortness of breath or inspirational chest discomfort. Denies coughing wheezing or hemoptysis. GI: Patient denies nausea, vomiting, diarrhea, abdominal pain, bloody stools. Musculoskeletal: Patient denies joint pain or edema. Denies calf pain or edema. Neurovascular: Patient denies numbness, tingling, weakness in extremities. Denies headache. Endocrine: Denies polyuria and polydipsia. Hematologic: Denies easy bruising. Skin: Denies rash or itching. PMFSH - History History Provided By: Patient, Family Member - Medical History Medical History: Medical History (Last Reviewed 04/11/18 @ 11:43 by SHANNON Davis) Hypertension Tobacco abuse disorder - Tobacco History Second Hand Smoke Exposure: No Tobacco Use In Past 30 Days: No Smoking Status: Never smoker - Alcohol History How Often Do You Have a Drink Containing Alcohol: Never - Substance Use History Substance History: No History of Abuse - Travel History Recent Travel in the [place] Within the Last 8 Weeks: No Recent Travel Out of the Country Within the Last 8 Weeks: No - Immunization History Tetanus Immunization: Unsure Medications and Allergies Active Medications: Active Medications Aspirin (Aspirin) 325 mg PO DAILY KATHY Clonidine HCl (Catapres) 0.1 mg PO Q6H PRN PRN Reason: SBP >165 OR DBP > 110 Sodium Chloride (Ns Flush) 2 ml IV.FLUSH UNSCH PRN PRN Reason: FLUSH AFTER USING IV ACCESS Sodium Chloride (Ns Flush) 2 ml IV.FLUSH BID KATHY Sodium Chloride (Ns Flush) 2 ml IV.FLUSH PRN PRN PRN Reason: FLUSH AFTER USING IV ACCESS Allergies Allergy/AdvReac Type Severity Reaction Status Date / Time lisinopril Allergy Severe Cough Unverified 04/11/18 11:54 Home Medications Medication Instructions Recorded Confirmed Type amlodipine-benazepril 1 cap PO DAILY 04/11/18 04/11/18 History levothyroxine 50 mcg PO DAILY 04/11/18 04/11/18 History meloxicam 7.5 mg PO DAILY 04/11/18 04/11/18 History metoprolol tartrate 100 mg PO BID 04/11/18 04/11/18 History omeprazole 20 mg PO DAILY 04/11/18 04/11/18 History simvastatin 20 mg PO QPM 04/11/18 04/11/18 History Exam Vital signs: Vital Signs 04/11/18 10:22 04/11/18 11:30 Temperature 98.3 F Pulse Rate 79 72 Respiratory Rate 16 16 Blood Pressure 158/82 H 157/90 H Pulse Oximetry 96 98 Intake & Output 04/10/18 04/11/18 04/11/18 18:59 06:59 18:59 Weight 92.533 kg Narrative: GENERAL: This is a well-nourished, well-developed patient, in no apparent distress. Patient speaks in clear complete sentences. Patient is pleasant. HEENT: Head is atraumatic and normocephalic. Neck is supple without lymphadenopathy and trachea is midline. No JVD or carotid bruits. CARDIOVASCULAR: Regular rate and rhythm without murmurs, gallops, or rubs. RESPIRATORY: Clear to auscultation. Breath sounds equal bilaterally. No wheezes , rales, or rhonchi. Chest wall is nontender. No use of accessory muscles. GASTROINTESTINAL: Abdomen is nontender, nondistended. Abdomen soft. No obvious pulsatile mass or bruit. No CVA tenderness. Strong femoral pulses bilaterally. Normal bowel sounds in all quadrants. MUSCULOSKELETAL: Patient is moving upper and lower extremities freely. No calf tenderness or edema, no Homans sign. Strong pulses in upper and lower extremities. NEUROLOGICAL: Patient is alert and oriented. Cranial nerves 2-12 are grossly intact. No focal deficits and speech is clear. SKIN: No rash and turgor is normal. Results 04/11/18 11:25 04/11/18 11:25 Cardiac Enzymes 04/11/18 Range/Units 11:25 AST 17 (15-37) U/L CK-MB (CK-2) 1.4 (0.5-3.6) ng/mL Troponin I Less than 0.02 L (0.02-0.05) ng/mL Coagulation 04/11/18 Range/Units 11:25 PT 10.5 (9.8-11.6) sec APTT 30.0 (24.3-30.1) sec CBC 04/11/18 Range/Units 11:25 WBC 5.0 (4.0-11.0) th/mm3 RBC 4.40 (4.00-5.30) mil/mm3 Hgb 13.8 (11.6-15.3) gm/dL Hct 41.6 (35.0-46.0) % Plt Count 247 (150-450) th/mm3 Neut # (Auto) 3.4 (1.8-7.7) th/mm3 Lymph # (Auto) 1.3 (1.0-4.8) th/mm3 Adams # (Auto) 0.3 (0.0-0.9) th/mm3 Eos # (Auto) 0.0 (0.0-0.4) th/mm3 Baso # (Auto) 0.0 (0.0-0.2) th/mm3 Comprehensive Metabolic Panel 04/11/18 Range/Units 11:25 Sodium 141 (136-145) meq/L Potassium 3.8 (3.5-5.1) meq/L Chloride 108 H (98-107) meq/L Carbon Dioxide 26.7 (21.0-32.0) meq/L BUN 10 (7-18) mg/dL Creatinine 0.73 (0.50-1.00) mg/dL Calcium 9.0 (8.5-10.1) mg/dL AST 17 (15-37) U/L ALT 18 (10-53) U/L Alkaline Phosphatase 70 (45-117) U/L Total Protein 7.4 (6.4-8.2) g/dL Albumin 3.4 (3.4-5.0) g/dL Intake and Output 04/10/18 04/11/18 04/11/18 22:59 06:59 14:59 Other: Weight 92.533 kg Patient Weight 04/12/18 06:59 Weight 92.533 kg - Imaging and Cardiology Imaging: Impressions Chest X-Ray 04/11/18 11:02 CONCLUSION: Negative examination. EKG interpretations - EKG EKG shows: sinus rhythm (Initial EKG is sinus rhythm without significant ST segment depressions or elevations.) Caprini VTE Risk Assessment Caprini VTE Risk Assessment: No/Low Risk (score <= 1) Caprini Risk Assessment Model: Point Value = 1 Point Value = 2 Point Value = 3 Point Value = 5 Age 41-60 Minor surgery BMI > 25 kg/m2 Swollen legs Varicose veins or History of unexplained or recurrent spontaneous Oral contraceptives or hormone replacement Sepsis (< 1 month) Serious lung disease, including pneumonia (< 1 month) Abnormal pulmonary function Acute myocardial infarction Congestive heart failure (< 1 month) History of inflammatory bowel disease Medical patient at bed rest Age 61-74 Arthroscopic surgery Major open surgery (> 45 min) Laparoscopic surgery (> 45 min) Malignancy Confined to bed (> 72 hours) Immobilizing plaster cast Central venous access Age >= 75 History of VTE Family history of VTE Factor V Leiden Prothrombin [id number] Lupus anticoagulant Anticardiolipin antibodies Elevated serum homocysteine Heparin-induced thrombocytopenia Other congenital or acquired thrombophilia Stroke (< 1 month) Elective arthroplasty Hip, pelvis, or leg fracture Acute spinal cord injury (< 1 month) Prophylaxis Regimen: Total Risk Factor Score Risk Level Prophylaxis Regimen 0-1 Low Early ambulation 2 Moderate Order ONE of the following: *Sequential Compression Device (SCD) *Heparin 5000 units SQ BID 3-4 Higher Order ONE of the following medications: *Heparin 5000 units SQ TID *Enoxaparin/Lovenox 40 mg SQ daily (WT < 150 kg, CrCl > 30 mL/min) *Enoxaparin/Lovenox 30 mg SQ daily (WT < 150 kg, CrCl > 10-29 mL/min) *Enoxaparin/Lovenox 30 mg SQ BID (WT < 150 kg, CrCl > 30 mL/min) AND/OR *Sequential Compression Device (SCD) 5 or more Highest Order ONE of the following medications: *Heparin 5000 units SQ TID (Preferred with Epidurals) *Enoxaparin/Lovenox 40 mg SQ daily (WT < 150 kg, CrCl > 30 mL/min) *Enoxaparin/Lovenox 30 mg SQ daily (WT < 150 kg, CrCl > 10-29 mL/min) *Enoxaparin/Lovenox 30 mg SQ BID (WT < 150 kg, CrCl > 30 mL/min) AND *Sequential Compression Device (SCD) Assessment and Plan - Assessment (1) Chest pain Code(s): R07.9 - Chest pain, unspecified Status: Acute (2) Hypertension Code(s): I10 - Essential (primary) hypertension Status: Acute (3) Hyperlipidemia Code(s): E78.5 - Hyperlipidemia, unspecified Status: Acute (4) Tobacco abuse Code(s): Z72.0 - Tobacco use Status: Acute - Plan * Chest pain: Patient will continue to have serial cardiac enzymes and EKGs for ruling out purposes. She will be seen by Dr. Israel Urias of cardiology in the chest pain center. She will undergo a Lexiscan the morning she ruled out and will be discharged home if her stress test is nonischemic. She is to follow -up with PCP. Return to ED for interval issues. * Hypertension: Restart her medication. * Hyperlipidemia: Continue medication. * Tobacco abuse: Patient counseled on the importance of smoking cessation. Patient is stable at this time. She is agreeable to this plan. (1) Chest pain Qualifiers: Chest pain type: unspecified Qualified Code(s): R07.9 - Chest pain, unspecified
[2018-04-11 16:13] LABS: Creatine Kinase 127 U/L (26-192)
[2018-04-11 18:31] LABS: Creatine Kinase 120 U/L (26-192)
[2018-04-12 07:48] VITALS: BP 166/79; RESP 16; TEMP 98.6; O2SAT 97
[2018-04-12] MEDS ORDERED: Aspirin 325 MG Tablet PO SCH (09:00)
[2018-04-12] MEDS ORDERED: amLODIPine 10 MG Tablet PO SCH (09:15)
[2018-04-12] MEDS ORDERED: Metoprolol Tartrate 100 MG Tablet PO SCH (09:15)
[2018-04-12 09:22] VITALS: PULSE 75
[2018-04-12] MEDS ORDERED: Regadenoson Inj 0.4 MG/5 ML Syringe IV.PUSH ONE (09:51)
--- NOTE | 2018-04-12 11:00 | NM ---
EXAM DATE: 04/12/2018 10:54 AM EDT AGE/SEX: 57 years / Female INDICATIONS:Angina. . Left sided chest pain for 3 days. CLINICAL DATA: This is the patient's initial encounter. Patient reports that signs and symptoms have been present for 3 days and indicates a pain score of 4/10. MEDICAL/SURGICAL HISTORY: Hypertension. Tobacco use. . COMPARISON: No prior exams available for comparison. DOSE: 8.6 mCi Tc 99m Myoview at rest 26.5 mCi [id number] at stress 0.4 mg Lexiscan STRESS SYMPTOMS: None. EJECTION FRACTION: 67 % TECHNIQUE: The patient underwent pharmacologic stress with infusion of prescribed dose. Continuous ECG tracing was monitored during stress. Gated SPECT imaging was performed after stress and conventi onal SPECT imaging was performed at rest. The examination was performed on a SPECT/CT scanner, both attenuation and non-corrected datasets were reviewed. FINDINGS: Distribution: The maximum perfused segment at stress is in the anterolateral wall. Perfusion Study: No definite fixed or reversible perfusion defect is identified. Gated Study: There are intact wall motion and wall thickening without hypokinetic or dyskinetic segm ents. The ejection fraction is calculated at 67%. RISK CATEGORY: Low (<1% Annual Motality Rate) CONCLUSION: 1. No fixed or reversible perfusion defect is identified. 2. Normal left ventricle wall motion and ejection fraction. Electronically signed by: Richie Birmingham MD 04/12/2018 10:59 AM EDT
--- NOTE | 2018-04-12 11:20 | ECG ---
Date Performed: 04/11/2018 Time Performed: 17:37:19 PTAGE: 57 years EKG: Sinus rhythm POSSIBLE RIGHT VENTRICULAR CONDUCTION DELAY BORDERLINE ECG PREVIOUS TRACING : 04/11/2018 15.21 Since previous tracing, no significant change noted DOCTOR: Lul Yan Interpretating Date/Time 04/12/2018 11:18:52
--- NOTE | 2018-04-12 11:20 | ECG ---
Date Performed: 04/11/2018 Time Performed: 15:21:06 PTAGE: 57 years EKG: SINUS BRADYCARDIA WITH FIRST DEGREE AV BLOCK POSSIBLE RIGHT VENTRICULAR CONDUCTION DELAY AB NORMAL ECG PREVIOUS TRACING : 04/11/2018 11.16 Since previous tracing, no significant change noted DOCTOR: Lul Yan Interpretating Date/Time 04/12/2018 11:19:53
--- NOTE | 2018-04-12 12:33 | TR ---
Date Performed: 04/12/2018 Time Performed: 09:53:58 DOCTOR: Lul Yan DRUG LIST: CLINICAL HISTORY: REASON FOR TEST: REASON FOR ENDING: OBSERVATION: CONCLUSION: COMMENTS: Lexiscan stress test was performed under standard four minute protocol. Radionuclide was injected one minute prior to ending the test. No electrocardiographic abormalities were present t o suggest ischemia. Nuclear imaging and interpretation are pending.
--- NOTE | 2018-04-13 01:09 | ECG ---
Date Performed: 04/11/2018 Time Performed: 11:16:28 PTAGE: 57 years EKG: Sinus rhythm WITH FIRST DEGREE AV BLOCK POSSIBLE RIGHT VENTRICULAR CONDUCTION DELAY MINIMAL VOLTAGE CRITERIA FOR LVH, CONSIDER NORMAL VARIANT ABNORMAL ECG PREVIOUS TRACING : 10/20/2011 15.12 Compared to previous tracing, LVH is new DOCTOR: Alf Singh Interpretating Date/Time 04/13/2018 01:07:59
== END 2018-04-12 12:27 | disposition home or self-care (01) ==
LOC: NEDA 10:20 → NEPD 10:20 → NEPFCDU 14:32
PROVIDERS: ADMIT Internal Medicine Cardiovascular Disease; ATTEND Internal Medicine Cardiovascular Disease